=== PATIENT | female | born 1960 | race Caucasian/White ===

== ENCOUNTER 2017-05-22 16:23 | Emergency (ER) | payer SELFPAY ==
[~2017-05-22] VITALS: Ht 172.7 cm; Wt 71.0 kg
[2017-05-22 16:29] VITALS: BP 137/65; PULSE 75; RESP 15; TEMP 98.4; O2SAT 95
== END 2017-05-22 18:09 | disposition left against medical advice (07) ==
LOC: NED 16:23
DX: R09.89 Other specified symptoms and signs involving the circulatory and respiratory systems (principal)
CPT/HCPCS: 99281